=== PATIENT | male | born 2000 | race Two or more races ===

== ENCOUNTER 2025-03-23 23:52 | Emergency (ER) | payer OTHER, SELFPAY ==
[2025-03-23 23:52] VITALS: BMI 28.1
[2025-03-23 23:59] VITALS: BP 135/85; PULSE 86; RESP 20; TEMP 37.4; O2SAT 97
--- NOTE | 2025-03-24 00:20 | PD.EDRME ---
Rapid Medical Screening Exam E Arrival date/time: 03/23/25 23:52 24M with history of alcohol use (yesterday) presents to ED with 1 day of gen ab pain and N/V. Chief Complaint: Abdominal Pain Vital signs: Vital Signs Temperature 99.3 F 03/23/25 23:59 Pulse Rate 86 03/23/25 23:59 Respiratory Rate 20 03/23/25 23:59 Blood Pressure 135/85 H 03/23/25 23:59 Pulse Oximetry (%) 97 03/23/25 23:59 Oxygen Delivery Method Room Air 03/23/25 23:59
[2025-03-24] MEDS: ONDANSETRON ODT 4 MG TABRAP PO (00:23)
[2025-03-24 00:44] LABS: Lactate (Lactic Acid) 3.7 mMol/L (0.4-2.0)
[2025-03-24 00:45] LABS: Basophils # (Auto) 0.0 Thou/mm3 (0.0-0.2); Basophils % (Auto) 1 % (0-2.5); Eosinophils # (Auto) 0.1 Thou/mm3 (0.0-0.5); Eosinophils % (Auto) 1 % (0-10); Hematocrit 45.8 % (41.0-53.0); Hemoglobin 15.8 g/dL (13.5-16.0); Immature Granulocytes Auto 0.03 Thou/mm3 (0.00-0.00); Lymphocytes # (Auto) 1.5 Thou/mm3 (1.0-4.8); Lymphocytes % (Auto) 17 % (10-50); Mean Corpuscular HGB Conc 34.5 g/dl (31.0-37.0); Mean Corpuscular Hemoglobin 30.6 pg (25.0-35.0); Mean Corpuscular Volume 89 fL (80-100); Monocytes # (Auto) 0.7 Thou/mm3 (0.0-0.8); Monocytes % (Auto) 8 % (0-12); Neutrophils # (Auto) 6.5 Thou/mm3 (1.8-7.7); Neutrophils % (Auto) 74 % (37-80); Nucleated Red Blood Cell # 0.00 Thou/mm3 (0.00-0.00); Nucleated Red Blood Cell % 0 /100 WBC (0); Platelet Count 221 Thou/mm3 (140-440); RDW Standard Deviation 40.8 fL (35.1-43.9); Red Blood Count 5.17 Miln/mm3 (4.50-5.90); White Blood Count 8.8 Thou/mm3 (3.8-10.6)
[2025-03-24 01:15] LABS: Alanine Aminotransferase 264 U/L (10-49); Albumin, Serum 5.1 gm/dL (3.5-5.0); Albumin/Globulin Ratio 2.0 (1.2-2.2); Alcohol, Blood Medical 193.7 mg/dL (0-10.0); Alkaline Phosphatase 141 U/L (46-116); Anion Gap 18 (7-16); Aspartate Amino Transferase 306 U/L (0-34); BUN/Creatinine Ratio 7 Ratio (12-20); Bilirubin,Total 1.8 mg/dL (0.3-1.2); Blood Urea Nitrogen 6 mg/dL (9-23); Calcium 9.2 mg/dL (8.3-10.6); Calcium (Corrected) 9.2 mg/dL (8.5-10.1); Carbon Dioxide 26.9 mMol/L (20.0-31.0); Chloride 98 mMol/L (98-107); Creatinine (Component) 0.9 mg/dL (0.6-1.3); Estimated Creatinine Clearance 134.7 mL/min (>60); Globulin 2.6 gm/dL (2.3-3.5); Glucose 126 mg/dL (74-106); Lipase 193 U/L (12-53); Osmolality,Calculated 284 (275-295); Potassium 3.2 mMol/L (3.4-5.1); Procalcitonin 0.08 ng/ml (0.0-0.49); Sodium 143 mMol/L (136-145); Total Protein 7.7 gm/dL (5.7-8.2); eGFR > 60 See Note
[2025-03-24 01:31] VITALS: BP 152/101; PULSE 81; RESP 20; TEMP 37.1; O2SAT 97
[2025-03-24 02:31] LABS: Collection Type, Urine Clean Catch; RBC,Urine 0 /hpf (0-3); WBC,Urine 0 /hpf (0-5)
[2025-03-24 02:43] LABS: Amphetamine/Methamp Scrn,U Negative (Negative); Barbiturate Screen,Urine Negative (Negative); Benzodiazepines Screen,Urine Negative (Negative); Benzoylecgonine Screen, Ur Negative (Negative); Fentanyl Screen,Urine Negative (Negative); Opiate Screen,Urine Negative (Negative); THC Screen,Urine Negative (Negative)
--- NOTE | 2025-03-24 02:46 | EDNOTE_ITS ---
ED Abdominal Pain RME/HPI General Chief Complaint: Abdominal Pain Stated complaint: VOMITING, UPPER ABDOMINAL PAIN Arrival date/time: 03/23/25 23:52 RME / HPI RME / HPI narrative: 03/23/25 23:52 24M with history of alcohol use (yesterday) presents to ED with 1 day of gen ab pain and N/V. Dr. Escamilla?s Main ED Evaluation: 24yo male with a history of alcohol abuse presents to the ED for a chief complaint of diffuse abdominal pain. Patient states he last drank alcohol yesterday (drinks daily), reporting since then, he's had diffuse abdominal pain and N/V. Patient denies any fever, chills, or any other associated symptoms. NKA. Related Data Home Medications ?Medication ?Instructions ?Recorded ?Confirmed budesonide-formoterol HFA 80 2 puff inhalation BID 08/2004/08/20 mcg-4.5 mcg/actuation aerosol inhaler (Symbicort) Previous Rx's ?Medication ?Instructions ?Recorded montelukast 5 mg chewable tablet 5 mg PO HS Asthma ##3 0 05/07/14 (Singulair) chlordiazepoxide HCl 25 mg capsule 25 mg PO Q6H PRN al cohol 03/24/25 withdrawal #30 caps metoclopramide HCl 10 mg tablet 10 mg PO Q6H PRN nause a and 03/24/25 (Reglan) vomiting #30 tabs Allergies Allergy/AdvReac Type Severity Reaction Status Date / Time No Known Allergies Allergy Verified 04/08/20 08:33 Review of Systems Review of Systems Systems Reviewed: All systems reviewed, normal except as documented Past Medical History Past Medical History CARDIAC: Negative Congestive Heart Failure or Hypertension RESPIRATORY: Positive Asthma; Negative Chronic Obstructive Pulmonary Disease (COPD) GENITOURINARY: Negative Renal Disease ENT: Negative Glaucoma ENDOCRINE: Negative Diabetes Mellitus Type 1 or Diabetes Mellitus Type 2 HEMATOLOGIC: Negative Blood Disorders Social History SMOKING STATUS: Former smoker ED Exam Narrative Physical exam: Generally patient is alert but tremulous, heart regular rate and rhythm, lungs clear to auscultation equal bilaterally, abdomen soft bowel sounds present nondistended minimal epigastric abdominal tenderness without rebound, skin is cool pale and dry, neurologic exam shows the patient to be tremulous without focal motor deficit. Ольга Coma Scale is 15. Course Quality Measures none Orders Category Date Time Status Alcohol, Blood Medical Stat Lab 03/24/25 00:24 Completed CBC Stat Lab 03/24/25 00:24 Completed CMP [Comprehensive Metabolic Panel] Stat Lab 03/24/25 00:24 Completed Drug Screen,Urine Stat Lab 03/24/25 02:19 Completed Lactate (Lactic Acid) Stat Lab 03/24/25 00:24 Completed Lactic Acid, 3 HR Stat Lab 03/24/25 03:53 Completed Lipase Stat Lab 03/24/25 00:24 Completed Procalcitonin Stat Lab 03/24/25 00:24 Completed Urinalysis, C/S if Indicated Stat Lab 03/24/25 02:19 Completed Metoclopramide Inj [Reglan Inj] Med 03/24/25 04:29 Discontinued 10 mg IVP X1 ONE Ondansetron Inj [Zofran Inj] Med 03/24/25 02:55 Discontinued 4 mg IVP X1 ONE Ondansetron Odt [Zofran Odt] Med 03/24/25 00:19 Discontinued 4 mg PO X1 ONE PHENobarbital Inj 130 mg Med 03/24/25 02:55 Discontinued Sodium Chloride 0.9% Flush [NS Flush] 12 ml IVP X1 PHENobarbital Inj 130 mg Med 03/24/25 04:05 Discontinued Sodium Chloride 0.9% Flush [NS Flush] 12 ml IVP X1 Potassium Chloride [K-Dur] Med 03/24/25 04:06 Discontinued 60 meq PO X1 ONE Sodium Chloride 0.9% 1000 ml [Ns] 1,000 ml Med 03/24/25 02:55 Discontinued IV 999 mls/hr Vital Signs Vital signs: Vital Signs Temperature 99.3 F 03/23/25 23:59 Pulse Rate 86 03/23/25 23:59 Respiratory Rate 20 03/23/25 23:59 Blood Pressure 135/85 H 03/23/25 23:59 Pulse Oximetry (%) 97 03/23/25 23:59 Oxygen Delivery Method Room Air 03/23/25 23:59 Abdominal Pain MDM MDM Narrative MDM Narrative:: Scribe Attestation: 03/24/25 - Phuong Tate am scribing for and in the presence of Dr. Escamilla. Patient appears to be in alcohol withdrawal. Patient received phenobarbital 130 mg IV x 2 as well as Zofran 4 mg IV and Reglan 10 mg IV. Patient was hydrated with a liter normal saline. Patient's labs are consistent with alcohol-induced hepatitis as well as pancreatitis. Patient is nontoxic condition. He appears to be in alcohol withdrawal. He will be discharged on Librium and Reglan to be taken as prescribed. Avoid alcohol. Clear liquid diet and advance as tolerated. Follow-up with his doctor. Return to ER as needed or if condition worsen. Patient's potassium is also slightly low at 3.2 so the patient was given potassium chloride 60 mill equivalents p.o. Differential diagnosis: Alcohol intoxication, alcohol withdrawal, delirium tremens, pancreatitis, hepatitis Patient data External records reviewed:: [facility] previous records (Per chart review, patient has no relevant previous ED visits.) Clinical information provided by:: patient Social determinants that could affect healthcare access:: alcohol use Patient has the following chronic illnesses:: asthma How is presenting disease/condition affected by chronic disease/condition?: uneffected by Evaluation data The following diagnostics were reviewed and interpreted by me:: lab results Lab and/or radiology exams considered but not ordered:: none Interpretation Summary: See MDM Medications / Prescriptions Medications or Prescriptions considered but not ordered:: none Medication administrations:: Medication Administration History Discontinued Medications Phenobarbital Sodium 130 mg/ (Sodium Chloride 12 ml) 0 mg IVP X1 ONE Stop: 03/24/25 02:56 Last Admin: 03/24/25 03:22 Dose: 130 mg Documented By: LEANNE Phenobarbital Sodium 130 mg/ (Sodium Chloride 12 ml) 0 mg IVP X1 ONE Stop: 03/24/25 04:06 Last Admin: 03/24/25 04:18 Dose: 130 mg Documented By: LEANNE Sodium Chloride (Ns) 1,000 mls @ 999 mls/hr IV .Q1H1M ONE Stop: 03/24/25 03:55 Last Infusion: 03/24/25 04:24 Dose: Infused Documented By: Admin: 03/24/25 03:22 Dose: 999 mls/hr Documented By: LEANNE Metoclopramide HCl (Metoclopramide Inj 5 Mg/Ml Vial 2 Ml) 10 mg IVP X1 ONE; Protocol Stop: 03/24/25 04:30 Last Admin: 03/24/25 04:35 Dose: 10 mg Documented By: LEANNE Ondansetron HCl (Ondansetron Odt 4 Mg Tabrap) 4 mg PO X1 ONE; Protocol Stop: 03/24/25 00:20 Last Admin: 03/24/25 00:23 Dose: 4 mg Documented By: BABATUNDE Ondansetron HCl (Ondansetron Inj 2 Mg/Ml Inj 2 Ml) 4 mg IVP X1 ONE; Protocol Stop: 03/24/25 02:56 Last Admin: 03/24/25 03:22 Dose: 4 mg Documented By: LEANNE Potassium Chloride (Potassium Chloride 20 Meq Tabcr) 60 meq PO X1 ONE Stop: 03/24/25 04:07 Last Admin: 03/24/25 04:18 Dose: 60 meq Documented By: LEANNE see above Consultations Consultation(s) initiated? (list below): No Diagnosis Differential diagnosis abdominal pain: other (See MDM) Most likely diagnosis given after review of the tests above:: see clinical impression below Admission Indicated Admission indicated?: not indicated Admission Request Was there a request for admission?: No Disposition Plan Disposition Plan: Discharge Discharge Attestation Discharge Attestation: The patient and all family members were given an opportunity to ask questions and understood the discharge instructions. Discharge instructions specifically effects, indications for sooner follow up or return to the emergency department, and the expected course of current diagnosis. Patient condition: Stable Discharge Plan Plan Patient Disposition: HOME (Self Care) Prescriptions/Referrals Prescriptions/Med Rec: New metoclopramide HCl [Reglan] 10 mg tablet 10 mg PO Q6H PRN (Reason: nausea and vomiting) Qty: 30 0RF chlordiazepoxide HCl 25 mg capsule 25 mg PO Q6H PRN (Reason: alcohol withdrawal) Qty: 30 0RF No Action budesonide-formoterol [Symbicort] 80-4.5 mcg/actuation HFA aerosol inhaler 2 puff IH BID montelukast [Singulair] 5 MG tablet,chewable 5 mg PO HS Qty: 30 0RF Referrals: Cain Atkins MD [Primary Care Provider, Nephrology] - In 1 week Problem List Clinical Impression: Alcohol withdrawal, Alcoholic hepatitis, Pancreatitis, Hypokalemia Patient/Caregiver Discharge Instructions Education Materials: Alcohol Withdrawal: What to Expect, ED Hepatitis Cause Unknown Test ..., ED Pancreatitis Additional Instructions: You must avoid alcohol. Medications as prescribed for nausea vomiting and alcohol withdrawal. Follow-up with your doctor. Return to ER as needed or if condition worsens. Print Language: Citizen Of [place] Stand Alone Forms: Nila Award Info., Patient Portal Info Letter
[2025-03-24] MEDS: ONDANSETRON INJ 2 MG/ML INJ 2 ML 4 MG IVP (03:22)
[2025-03-24] MEDS: SODIUM CHLORIDE 0.9% 1000 ML 1,000 ML 999 ML IV (03:22)
[2025-03-24] MEDS: PHENobarbital Inj 130 MG, SODIUM CHLORIDE 0.9% FLUSH 12 ML IVP ×2 (03:22→04:18)
[2025-03-24 03:30] LABS: Amorphous Crystals,Urine Present (Absent); Bilirubin,Urine 1+ (Negative); Blood,Urine Negative (Negative); Clarity,Urine Turbid (Clear/Hazy); Color,Urine Drk-Yellow (Lt Yel-Yel); Culture Indicated,Urine Not Indicated; Glucose, Urine Trace (Negative); Hyaline Casts,Urine 2 /hpf (0-1); Ketones,Urine Trace (Negative); Leukocyte Esterase,Urine Negative (Negative); Nitrite,Urine Negative (Negative); PH,Urine 6.0 (5.0-7.0); Protein,Urine 2+ (Neg - Trace); Specific Gravity,Urine 1.036 (1.001-1.035); Squamous Epithelial Cell,Urine 5 /hpf (0-5)
[2025-03-24 03:38] LABS: Urobilinogen,Urine >8.0 mg/dL (0.0-1.0)
[2025-03-24 03:41] LABS: Reflex Lactate? Y
[2025-03-24 04:02] LABS: Lactic Acid, 3 HR 3.6 mMol/L (0.4-2.0)
[2025-03-24 04:29] VITALS: BP 143/84; PULSE 83; RESP 19; TEMP 36.9; O2SAT 97
[2025-03-24] MEDS: METOCLOPRAMIDE INJ 5 MG/ML VIAL 2 ML 10 MG IVP (04:35)
== END 2025-03-24 04:51 | disposition home or self-care (01) ==
PROVIDERS: Physician Assistant; Emergency Provider Emergency Medicine; PCP Internal Medicine
DX: K85.90 Acute pancreatitis without necrosis or infection, unspecified (principal); F10.239 Alcohol dependence with withdrawal, unspecified; Y90.9 Presence of alcohol in blood, level not specified; K70.10 Alcoholic hepatitis without ascites; E87.6 Hypokalemia; Z79.51 Long term (current) use of inhaled steroids
CPT/HCPCS: 36415; 80053; 80307; 80320; 81001; 83605; 83690; 84145; 85025; 96361; 96374; 96375; 96376; 99283; A4216; J2405; J2560; J2765; J7030; Q0162; A9270; G0480

== ENCOUNTER 2025-05-29 00:08 | Emergency (ER) | payer OTHER, SELFPAY ==
[2025-05-29 00:10] VITALS: BMI 26.6
--- NOTE | 2025-05-29 00:48 | PC.NURSE ---
TOLD SECURITY HE FEELS BETTER AND DOES NOT WANT TO BE SEEN. LILIANA
== END 2025-05-29 00:49 | disposition left against medical advice (07) ==
LOC: SERX 01:09
PROVIDERS: Emergency Provider Emergency Medicine
DX: Z53.21 Procedure and treatment not carried out due to patient leaving prior to being seen by health care provider (principal)
CPT/HCPCS: 99281

== ENCOUNTER 2025-05-29 22:14 | Emergency (ER) | payer OTHER, SELFPAY ==
[2025-05-29 22:16] VITALS: BMI 26.6
[2025-05-29 22:39] VITALS: PULSE 102; RESP 20; TEMP 36.9; O2SAT 98
[2025-05-29 22:46] VITALS: BP 92/59; PULSE 134
--- NOTE | 2025-05-29 22:50 | EKG_ITS ---
[facility] Test Date: 2025-05-29 Pat Name: VALENTIN COREAS Department: Room: - Gender: Male Corsetier: : 2000 Requested By: ED Temporary Provider Order Number: [id number] Reading MD: ED Temporary Provider Measurements Intervals [place] Rate: 133 P: -1 AL: 108 QRS: 93 QRSD: 89 T: -27 QT: 269 QTc: 401 Interpretive Statements SINUS TACHYCARDIA WITH SHORT AL INTERVAL BORDERLINE RIGHT AXIS DEVIATION [QRS AXIS > 90] NONSPECIFIC T-WAVE ABNORMALITY No previous ECG available for comparison /store/S0/[id number]/[id number].pdf
--- NOTE | 2025-05-29 22:52 | XR_ITS ---
EXAMINATION: AP chest single view TECHNIQUE: AP portable upright chest single view INDICATIONS: Coughing today. FINDINGS: Mild enlargement cardiac contour Prominent vascular congestion Perihilar basilar lung opacity Prominent osteopenia IMPRESSION: Bilateral perihilar basilar pneumonia Suspicious for mild heart failure, clinical correlation advised
[2025-05-29] MEDS: SODIUM CHLORIDE 0.9% 1000 ML 1,000 ML 999 ML IV (23:03)
[2025-05-29 23:21] LABS: Basophils # (Auto) 0.1 Thou/mm3 (0.0-0.2); Basophils % (Auto) 1 % (0-2.5); Eosinophils # (Auto) 0.0 Thou/mm3 (0.0-0.5); Eosinophils % (Auto) 0 % (0-10); Hematocrit 42.9 % (41.0-53.0); Hemoglobin 15.0 g/dL (13.5-16.0); Immature Granulocytes Auto 0.09 Thou/mm3 (0.00-0.00); Lymphocytes # (Auto) 1.3 Thou/mm3 (1.0-4.8); Lymphocytes % (Auto) 11 % (10-50); Mean Corpuscular HGB Conc 35.0 g/dl (31.0-37.0); Mean Corpuscular Hemoglobin 32.0 pg (25.0-35.0); Mean Corpuscular Volume 92 fL (80-100); Monocytes # (Auto) 1.0 Thou/mm3 (0.0-0.8); Monocytes % (Auto) 8 % (0-12); Neutrophils # (Auto) 9.3 Thou/mm3 (1.8-7.7); Neutrophils % (Auto) 79 % (37-80); Nucleated Red Blood Cell # 0.00 Thou/mm3 (0.00-0.00); Nucleated Red Blood Cell % 0 /100 WBC (0); Platelet Count 406 Thou/mm3 (140-440); RDW Standard Deviation 44.9 fL (35.1-43.9); Red Blood Count 4.69 Miln/mm3 (4.50-5.90); White Blood Count 11.8 Thou/mm3 (3.8-10.6)
[2025-05-29] MEDS: ONDANSETRON INJ 2 MG/ML INJ 2 ML 4 MG IVP (23:42)
[2025-05-29 23:58] LABS: Alanine Aminotransferase 377 U/L (10-49); Albumin, Serum 4.2 gm/dL (3.5-5.0); Albumin/Globulin Ratio 1.3 (1.2-2.2); Alcohol, Blood Medical 339.1 mg/dL (0-10.0); Alkaline Phosphatase 189 U/L (46-116); Anion Gap 13 (7-16); Aspartate Amino Transferase 1363 U/L (0-34); BUN/Creatinine Ratio 13 Ratio (12-20); Bilirubin,Total 1.8 mg/dL (0.3-1.2); Blood Urea Nitrogen 13 mg/dL (9-23); Calcium 8.4 mg/dL (8.3-10.6); Calcium (Corrected) 8.4 mg/dL (8.5-10.1); Carbon Dioxide 25.0 mMol/L (20.0-31.0); Chloride 102 mMol/L (98-107); Creatinine (Component) 1.0 mg/dL (0.6-1.3); Estimated Creatinine Clearance 114.9 mL/min (>60); Globulin 3.2 gm/dL (2.3-3.5); Glucose 137 mg/dL (74-106); Lipase 83 U/L (12-53); Osmolality,Calculated 281 (275-295); Potassium 3.2 mMol/L (3.4-5.1); Sodium 140 mMol/L (136-145); Total Protein 7.4 gm/dL (5.7-8.2); eGFR > 60 See Note
[2025-05-30 00:01] LABS: Troponin I 0.073 ng/mL (0.0-0.045)
--- NOTE | 2025-05-30 00:18 | PC.NURSE ---
pt states he drinks 2 shots of 50 proof daily
[2025-05-30 00:23] VITALS: PULSE 137; RESP 20; O2SAT 99
[2025-05-30] MEDS: ALBUTEROL/IPRATROPIUM (Duoneb) RT SOL 3 ML NEBU INH (00:23)
--- NOTE | 2025-05-30 00:23 | PC.NURSE ---
pt has been educated multiple time to stay in bed, documneting nurse keeps finding the patient out of bed. pt has stated multple times that he has fainted yet no witnesess
[2025-05-30 00:30] LABS: Collection Type, Urine Clean Catch
[2025-05-30 00:41] LABS: Bacteria,Urine Rare; Bilirubin,Urine 2+ (Negative); Blood,Urine 2+ (Negative); Clarity,Urine Turbid (Clear/Hazy); Color,Urine Drk-Yellow (Lt Yel-Yel); Glucose, Urine Trace (Negative); Hyaline Casts,Urine 2 /hpf (0-1); Ketones,Urine Negative (Negative); Leukocyte Esterase,Urine Negative (Negative); Nitrite,Urine Negative (Negative); PH,Urine 6.0 (5.0-7.0); Protein,Urine 3+ (Neg - Trace); RBC,Urine 9 /hpf (0-3); Specific Gravity,Urine 1.035 (1.001-1.035); Squamous Epithelial Cell,Urine 2 /hpf (0-5); Urobilinogen,Urine OVER mg/dL (0.0-1.0); WBC,Urine 17 /hpf (0-5)
--- NOTE | 2025-05-30 01:07 | PC.LAC ---
pt refusing labs want iv fluids and DC papers does not wantt o stay for further treatment
--- NOTE | 2025-05-30 01:08 | EDNOTE_ITS ---
Upper Respiratory Inf. RME/HPI General Chief Complaint: Flu Like Symptoms Stated Complaint: DIFF BREATHING, COUGHING Time Seen by Provider: 05/29/25 22:49 Arrival date/time: 05/29/25 22:14 Mode of arrival: ambulatory Limitations: no limitations RME / HPI RME / HPI Narrative: This patient is a 24-year-old male who arrives to the ED today for evaluation of cough for the past several days as well as shortness of breath that began yesterday and continued into today. Patient states that symptoms came on relatively unrelenting. Patient denies any fever. Patient does state that he utilizes alcohol daily. Patient appears intoxicated at time of arrival. Patient was hypotensive and tachycardic. Related Data Home Medications ?Medication ?Instructions ?Recorded ?Confirmed budesonide-formoterol HFA 80 2 puff inhalation BID 08/2004/08/20 mcg-4.5 mcg/actuation aerosol inhaler (Symbicort) Previous Rx's ?Medication ?Instructions ?Recorded montelukast 5 mg chewable tablet 5 mg PO HS Asthma ##3 0 05/07/14 (Singulair) chlordiazepoxide HCl 25 mg capsule 25 mg PO Q6H PRN al cohol 03/24/25 withdrawal #30 caps metoclopramide HCl 10 mg tablet 10 mg PO Q6H PRN nause a and 03/24/25 (Reglan) vomiting #30 tabs acetaminophen 500 mg tablet 500 mg PO Q4H PRN fever or pain 05/30/25 (Tylenol Extra Strength) #30 tabs amoxicillin 875 mg-potassium 1 tab PO BID 10 days #20 tabs 05/30/25 clavulanate 125 mg tablet chlordiazepoxide HCl 25 mg capsule 25 mg PO TID PRN an xiety #20 caps 05/30/25 levofloxacin 750 mg tablet 750 mg PO Q24H 10 days #10 tabs 05/30/25 ondansetron 4 mg disintegrating 4 mg PO Q6H PRN nausea and 05/30/25 tablet vomiting #20 tabs Allergies Allergy/AdvReac Type Severity Reaction Status Date / Time No Known Allergies Allergy Verified 05/29/25 22:15 Review of Systems Review of Systems Systems Reviewed: All systems reviewed, normal except as documented Past Medical History Past Medical History CARDIAC: Negative Congestive Heart Failure or Hypertension RESPIRATORY: Positive Asthma; Negative Chronic Obstructive Pulmonary Disease (COPD) GENITOURINARY: Negative Renal Disease ENT: Negative Glaucoma ENDOCRINE: Negative Diabetes Mellitus Type 1 or Diabetes Mellitus Type 2 HEMATOLOGIC: Negative Blood Disorders Social History SMOKING STATUS: Current every day smoker ED Exam Narrative Physical exam: This patient looks moderately toxic at time of evaluation. Patient displayed pallor. General Limitations: Present no limitations General appearance: Present in distress (Patient was in moderate distress due to generalized ill feeling and cough concerns.) Head Head exam: Present atraumatic Eye Eye exam: Present PERRL, EOMI and conjunctival injection ENT ENT exam: Present normal exam, normal oropharynx and mucous membranes moist Neck Neck exam: Present normal inspection, full ROM and trachea midline Chest Chest inspection: Present normal inspection and symmetric chest wall rise Respiratory Respiratory exam: Present other (Mild rhonchi appreciated in bilateral lower lobes. No accessory muscle use.) Cardiovascular Cardiovascular exam: Present normal rhythm, tachycardia and normal heart sounds Abdominal Exam Abdominal exam: Present soft and normal bowel sounds Extremities Exam Extremities exam: Present normal inspection and full ROM Back Exam Back exam: Present normal inspection and full ROM Neurological Exam Neurological exam: Present oriented X3 and other (Patient appears intoxicated.) Psychiatric Psychiatric exam: Present normal affect and normal mood Skin Skin exam: Present warm, dry, intact and normal color Course Quality Measures none Orders Category Date Time Status Bedside COVID-19 Antigen Test NOW Care 05/29/25 22:52 Active Bedside Influenza A&B Antigen Test NOW Care 05/29/25 22:52 Completed EKG (ED ONLY) *Do not use* NOW Care 05/29/25 22:50 Completed IV [Insert IV] NOW Care 05/29/25 22:52 Active EKG (ED Only) Stat Exams 05/29/25 22:50 Draft XR chest 1V portable Stat Exams 05/29/25 22:52 Completed Alcohol, Blood Medical Stat Lab 05/29/25 23:05 Completed CBC Stat Lab 05/29/25 23:05 Completed CMP [Comprehensive Metabolic Panel] Stat Lab 05/29/25 23:05 Completed Lipase Stat Lab 05/29/25 23:05 Completed Troponin I Stat Lab 05/29/25 23:05 Completed Troponin I Stat Lab 05/30/25 00:55 Ordered UA [Urinalysis] Stat Lab 05/30/25 00:16 Completed Albuterol/Ipratr Rt Kayla [Duoneb Rt Kayla] Med 05/30/25 00:01 Discontinued 3 ml INH X1 ONE Azithromycin Inj [Zithromax Inj] 500 mg Med 05/30/25 00:56 Discontinued Sodium Chloride 0.9% 250 ml [Ns] 250 ml IV X1 Azithromycin Po [Zithromax PO] Med 05/30/25 01:05 Discontinued 500 mg PO X1 ONE DOXYCYCLINE HYCLATE 100mg IV Med 05/30/25 00:57 Discontinued 100 mg IV X1 ONE Doxycycline [Vibramycin] Med 05/30/25 01:05 Discontinued 100 mg PO X1 ONE Ondansetron Inj [Zofran Inj] Med 05/29/25 23:36 Discontinued 4 mg IVP X1 ONE Sodium Chloride 0.9% 1000 ml [Ns] 1,000 ml Med 05/29/25 22:51 Discontinued IV 999 mls/hr Sodium Chloride 0.9% 1000 ml [Ns] 1,000 ml Med 05/30/25 00:58 Active IV 999 mls/hr dexAMETHasone INJ [Decadron Inj] Med 05/30/25 00:01 Discontinued 10 mg IVP X1 ONE As noted above Vital Signs Vital signs: Vital Signs Temperature 98.4 F 05/29/25 22:39 Pulse Rate 102 H 05/29/25 22:39 Respiratory Rate 20 05/29/25 22:39 Pulse Oximetry (%) 98 05/29/25 22:39 Oxygen Delivery Method Room Air 05/29/25 22:39 As noted above Upper Respiratory Infection MDM Narrative MDM Narrative:: All studies performed in the ED were evaluated by me personally. Serum studies revealed a significant transaminitis with an AST of 1363, blood alcohol level of 0.34, elevated troponin as well as a urinary tract infection. Cardiac markers were unremarkable. EKG revealed a sinus tachycardia with short SC interval. Borderline right axis deviation noted. SC interval of 108 and QT interval of 269. Chest x-ray was remarkable for bilateral perihilar basilar pneumonia. Discussed all of the laboratory, EKG and imaging finds with the patient. Advised patient that I would like to admit him, but the patient states he does not want to be admitted and would like to go home on oral medication. Advised patient to utilize medication as directed, cease alcohol use immediately and follow-up with a support group such as alcohol Anonymous. Advised patient if his symptoms worsen, return to ED for management. Patient data External records reviewed:: [facility] previous records Clinical information provided by:: patient Social determinants that could affect healthcare access:: alcohol use Patient has the following chronic illnesses:: None How is presenting disease/condition affected by chronic disease/condition?: no chronic disease Evaluation data The following diagnostics were reviewed and interpreted by me:: lab results, radiology exam(s) and EKG tracing(s) Lab and/or radiology exams considered but not ordered:: None Interpretation Summary: Transaminitis, UTI, elevated troponin, alcohol abuse, pneumonia Medications / Prescriptions Medications or Prescriptions considered but not ordered:: None Medication administrations:: Medication Administration History Sodium Chloride (Ns) 1,000 mls @ 999 mls/hr IV .Q1H1M ONE Stop: 05/30/25 01:58 Discontinued Medications Albuterol/Ipratropium (Albuterol/Ipratropium (Duoneb) Rt Kayla 3 Ml Nebu) 3 ml INH X1 ONE Stop: 05/30/25 00:02 Last Admin: 05/30/25 00:23 Dose: 3 ml Documented By: ERICA Azithromycin (Azithromycin 250 Mg Tablet) 500 mg PO X1 ONE Stop: 05/30/25 01:06 Dexamethasone Sodium Phosphate (Dexamethasone Sod Phos Inj 10 Mg/Ml Vial) 10 mg IVP X1 ONE Stop: 05/30/25 00:02 Last Admin: 05/30/25 00:20 Dose: 10 mg Documented By: SHYANNE Doxycycline Hyclate (Doxycycline Hyclate 100 Mg Vial) 100 mg IV X1 ONE Stop: 05/30/25 00:58 Doxycycline Hyclate (Doxycycline 100 Mg Tablet) 100 mg PO X1 ONE Stop: 05/30/25 01:06 Sodium Chloride (Ns) 1,000 mls @ 999 mls/hr IV .Q1H1M ONE Stop: 05/29/25 23:51 Last Infusion: 05/30/25 00:01 Dose: 0 mls/hr Documented By: Admin: 05/29/25 23:03 Dose: 999 mls/hr Documented By: SHYANNE Azithromycin 500 mg/ Sodium (Chloride) 250 mls @ 250 mls/hr IV X1 ONE Stop: 05/30/25 01:55 Ondansetron HCl (Ondansetron Inj 2 Mg/Ml Inj 2 Ml) 4 mg IVP X1 ONE; Protocol Stop: 05/29/25 23:37 Last Admin: 05/29/25 23:42 Dose: 4 mg Documented By: SHYANNE As noted above Consultations Consultation(s) initiated? (list below): No Diagnosis Upper Respiratory Differential Diagnosis: upper respiratory infection and other (Pneumonia, sepsis, electrolyte abnormality, acute coronary syndrome, alcohol abuse, urinary tract infection) Most likely diagnosis given after review of the tests above:: No new, UTI, alcohol abuse, transaminitis Admission Indicated Admission indicated?: indicated Explain why admission is indicated or not indicated:: Due to significant blood alcohol concerns, elevated troponin and concerning liver issues Admission Request Was there a request for admission?: No Admission Attestation Admission request attestation: Patient stated he did not want to be admitted and therefore, patient will be discharged on oral medication. Patient been advised to follow-up with a alcohol cessation group such as alcohol Anonymous. Disposition Plan Disposition Plan: Discharge Discharge Attestation Discharge Attestation: The patient and all family members were given an opportunity to ask questions and understood the discharge instructions. Discharge instructions specifically effects, indications for sooner follow up or return to the emergency department, and the expected course of current diagnosis. Patient condition: Stable Discharge Plan Plan Patient Disposition: HOME (Self Care) Prescriptions/Referrals Prescriptions/Med Rec: New amoxicillin-pot clavulanate 875-125 mg tablet 1 tab PO BID 10 Days Qty: 20 0RF levofloxacin 750 mg tablet 750 mg PO Q24H 10 Days Qty: 10 0RF ondansetron 4 mg tablet,disintegrating 4 mg PO Q6H PRN (Reason: nausea and vomiting) Qty: 20 0RF acetaminophen [Tylenol Extra Strength] 500 mg tablet 500 mg PO Q4H PRN (Reason: fever or pain) Qty: 30 0RF chlordiazepoxide HCl 25 mg capsule 25 mg PO TID MDD 3 tabs PRN (Reason: anxiety) Qty: 20 0RF No Action budesonide-formoterol [Symbicort] 80-4.5 mcg/actuation HFA aerosol inhaler 2 puff IH BID montelukast [Singulair] 5 MG tablet,chewable 5 mg PO HS Qty: 30 0RF metoclopramide HCl [Reglan] 10 mg tablet 10 mg PO Q6H PRN (Reason: nausea and vomiting) Qty: 30 0RF chlordiazepoxide HCl 25 mg capsule 25 mg PO Q6H PRN (Reason: alcohol withdrawal) Qty: 30 0RF Referrals: No Primary/Family,Physician [Primary Care Provider] - In 1 week Problem List Clinical Impression: Pneumonia, Urinary tract infection, Transaminitis Patient/Caregiver Discharge Instructions Education Materials: Urinary Tract Infections in Men, ED Pneumonia (Adult) Additional Instructions: Advised patient was antibiotics as directed to completion as well as a supplement medication as needed. Patient should cease alcohol use immediately and follow-up with a support group such as alcohol Anonymous. Print Language: [place] Stand Alone Forms: Nila Award Info., Patient Portal Info Letter
[2025-05-30] MEDS: DOXYCYCLINE 100 MG TABLET PO (01:11)
[2025-05-30] MEDS: AZITHROMYCIN 250 MG TABLET 500 MG PO (01:11)
[2025-05-30] MEDS: SODIUM CHLORIDE 0.9% 1000 ML 1,000 ML 999 ML IV (01:11)
[2025-05-30 01:36] VITALS: BP 121/85; PULSE 98; RESP 20; O2SAT 98
== END 2025-05-30 01:39 | disposition home or self-care (01) ==
PROVIDERS: Emergency Provider Physician Assistant
DX: J18.9 Pneumonia, unspecified organism (principal); N39.0 Urinary tract infection, site not specified; R74.01 Elevation of levels of liver transaminase levels; F17.290 Nicotine dependence, other tobacco product, uncomplicated; Z79.51 Long term (current) use of inhaled steroids
CPT/HCPCS: 36415; 71045; 80053; 80320; 81001; 83690; 84484; 85025; 87502; 87635; 93005; 94640; 96361; 96374; 96375; 99284; A9270; J1100; J2405; J7030; G0480

== ENCOUNTER 2025-05-31 12:46 | Emergency (ER) | payer OTHER, SELFPAY ==
[2025-05-31 13:07] VITALS: BP 100/66; PULSE 124; RESP 20; TEMP 37.6; O2SAT 95; BMI 26.6
--- NOTE | 2025-05-31 13:30 | PD.EDADULT ---
ED General RME/HPI General Chief complaint: Alcohol Stated complaint: N/V, SOB, ETOH WITHDRAWL Time Seen by Provider: 05/31/25 13:25 Arrival date/time: 05/31/25 12:46 CC: Nausea vomiting loss of appetite drinking alcohol daily HPI ongoing for months, was seen here 2 days ago but refused admission, now returns with same complaints last drink was 3 hours ago. Patient denies chest pain shortness of breath. Related Data Home Medications ?Medication ?Instructions ?Recorded ?Confirmed budesonide-formoterol HFA 80 2 puff inhalation BID 02/04/20 04/08/20 mcg-4.5 mcg/actuation aerosol inhaler (Symbicort) Previous Rx's ?Medication ?Instructions ?Recorded montelukast 5 mg chewable tablet 5 mg PO HS Asthma ##30 05/07/14 (Singulair) chlordiazepoxide HCl 25 mg capsule 25 mg PO Q6H PRN alcohol 03/24/25 withdrawal #30 caps metoclopramide HCl 10 mg tablet 10 mg PO Q6H PRN nausea and 03/24/25 (Reglan) vomiting #30 tabs acetaminophen 500 mg tablet 500 mg PO Q4H PRN fever or pain 05/30/25 (Tylenol Extra Strength) #30 tabs amoxicillin 875 mg-potassium 1 tab PO BID 10 days #20 tabs 05/30/25 clavulanate 125 mg tablet chlordiazepoxide HCl 25 mg capsule 25 mg PO TID PRN anxiety #20 caps 05/30/25 levofloxacin 750 mg tablet 750 mg PO Q24H 10 days #10 tabs 05/30/25 ondansetron 4 mg disintegrating 4 mg PO Q6H PRN nausea and 05/30/25 tablet vomiting #20 tabs Allergies Allergy/AdvReac Type Severity Reaction Status Date / Time No Known Allergies Allergy Verified 05/31/25 12:49 Review of Systems Review of Systems Narrative Review of Systems: GEN: No fever, no chills, no weight loss EYES: No discharge, no visual changes, no pain HEENT: No ear pain, no congestion, no sore throat PULM: No shortness of breath, no cough, no congestion CV: No chest pain, no dyspnea on exertion, no palpitations GI: + nausea, + vomiting, no diarrhea, no pain, no constipation : No frequency, no urgency, no dysuria MUSC/SKEL: No joint pain, no back pain SKIN: No rash PSYCH: No hallucinations, no depression HEME/LYMPH: No easy bleeding or bruising tendencies NEURO: No weakness, no headache Course Course Course Narrative: Initial CIWA 8 Patient's laboratory results and imaging discussed with Dr. James, who states you cannot have elevated transaminitis without gallstones. Patient is a calculus he reviewed it saying that this is normal in appearance of gallbladder and there is no need for surgical consult. Reassessment of the patient at 1999, the patient's heart rate is now accelerated he has no fine hand tremens but he continues to be nauseated. DAfter Breathing treatment, at 2154, the patient left AGAINST MEDICAL ADVICE in spite of being advised that he had potential serious illness underlying and not necessarily had symptoms of alcohol withdrawal. Quality Measures none Orders Category Date Time Status Saline [Insert IV] NOW Care 05/31/25 17:11 Active US gall bladder Stat Exams 05/31/25 16:12 Completed XR chest 1V Stat Exams 05/31/25 20:56 Completed Alcohol, Blood Medical Stat Lab 05/31/25 13:57 Completed B-Type Natriuretic Peptide Stat Lab 05/31/25 13:57 Completed CBC Stat Lab 05/31/25 13:57 Completed CBC Stat Lab 05/31/25 19:49 Completed CMP [Comprehensive Metabolic Panel] Stat Lab 05/31/25 19:49 Results Comprehensive Metabolic Panel Stat Lab 05/31/25 13:57 Completed Drug Screen,Urine Stat Lab 05/31/25 14:15 Completed Lipase Stat Lab 05/31/25 13:57 Completed Lipase Stat Lab 05/31/25 19:49 Results Lipid Panel Stat Lab 05/31/25 19:49 Results Magnesium Stat Lab 05/31/25 13:57 Completed Partial Thromboplastin Time Stat Lab 05/31/25 13:57 Completed Prothrombin Time with INR Stat Lab 05/31/25 13:57 Completed Urinalysis, C/S if Indicated Stat Lab 05/31/25 14:15 Completed Albuterol/Ipratr Rt Kayla [Duoneb Rt Kayla] Med 05/31/25 21:12 Discontinued 3 ml INH X1 ONE Diazepam Inj [Valium Inj] Med 05/31/25 17:11 Discontinued 10 mg IVP X1 ONE Ondansetron Inj [Zofran Inj] Med 05/31/25 17:11 Discontinued 4 mg IVP X1 ONE Ondansetron Odt [Zofran Odt] Med 05/31/25 13:30 Discontinued 4 mg PO X1 ONE Prochlorperazine Inj [Compazine Inj] Med 05/31/25 20:02 Discontinued 10 mg IV X1 ONE Ringers Lactated 1000 ml [Lactated Ringers] 1,000 ml Med 05/31/25 17:11 Discontinued IV 999 mls/hr Ringers Lactated 1000 ml [Lactated Ringers] 1,000 ml Med 05/31/25 18:15 Discontinued IV 999 mls/hr Sodium Chloride 0.9% 1000 ml [Ns] 1,000 ml Med 05/31/25 20:02 Active IV 250 mls/hr Sodium Chloride 0.9% 1000 ml [Ns] 1,000 ml Med 05/31/25 20:02 Discontinued IV 999 mls/hr Vital Signs Vital signs: Vital Signs Temperature 99.7 F 05/31/25 13:07 Pulse Rate 124 H 05/31/25 13:07 Respiratory Rate 20 05/31/25 13:07 Blood Pressure 100/66 05/31/25 13:07 Pulse Oximetry (%) 95 05/31/25 13:07 Oxygen Delivery Method Room Air 05/31/25 13:07 Discharge Plan Plan Patient Disposition: Left Against Medical Advice Patient condition on transfer: Stable Prescriptions/Referrals Prescriptions/Med Rec: No Action budesonide-formoterol [Symbicort] 80-4.5 mcg/actuation HFA aerosol inhaler 2 puff IH BID montelukast [Singulair] 5 MG tablet,chewable 5 mg PO HS Qty: 30 0RF metoclopramide HCl [Reglan] 10 mg tablet 10 mg PO Q6H PRN (Reason: nausea and vomiting) Qty: 30 0RF chlordiazepoxide HCl 25 mg capsule 25 mg PO Q6H PRN (Reason: alcohol withdrawal) Qty: 30 0RF amoxicillin-pot clavulanate 875-125 mg tablet 1 tab PO BID 10 Days Qty: 20 0RF levofloxacin 750 mg tablet 750 mg PO Q24H 10 Days Qty: 10 0RF ondansetron 4 mg tablet,disintegrating 4 mg PO Q6H PRN (Reason: nausea and vomiting) Qty: 20 0RF acetaminophen [Tylenol Extra Strength] 500 mg tablet 500 mg PO Q4H PRN (Reason: fever or pain) Qty: 30 0RF chlordiazepoxide HCl 25 mg capsule 25 mg PO TID MDD 3 tabs PRN (Reason: anxiety) Qty: 20 0RF Referrals: Cain Atkins MD [Primary Care Provider, Nephrology] - In 1 week Problem List Clinical Impression: Abdominal pain, Nausea & vomiting, Alcohol withdrawal, Transaminitis, Elevated bilirubin Patient/Caregiver Discharge Instructions Print Language: Maltese [facility] Clinical Information Provided by: patient Medical Records reviewed [facility] Meds/Rx considered, not ordered None Labs/Rad/Tests considered, not ordered None Chronic Illness/Social Conditions which may negatively complicate care or outcome(s)-explain: ETOH/drugs/substance abuse EKG EKG not done Labs Labs: interpreted by me Lab(s) Interpretation(s): CBC shows a leukocytosis of 14.5 hemoglobin of 13.2 hematocrit of 39.9. Platelet count of 374. Coags show PT of 13.5 INR 1.3 PTT of 24.5 CMP shows a BUN of 26 glucose of 133 no other electrolyte imbalances no renal impairment T. bili is 1.9 AST at 664 ALT of 334 alk phos of 190 note: These are basically unchanged from 3 days ago. BNP at 1500 Lipase at 86. Urine shows no source of infection 1+ ketones 1+ protein UDS is positive for opiates and fentanyl Ethyl alcohol is 109.5. Imaging Imaging interpretation: interpreted by me Imaging Interpretation(s): Ultrasound of the gallbladder shows no sludge or stones. Medication Administration(s) Medication Administration History Sodium Chloride (Ns) 1,000 mls @ 250 mls/hr IV .Q4H [place] Stop: 06/30/25 20:01 Last Admin: 05/31/25 20:31 Dose: 250 mls/hr Documented By: AC Discontinued Medications Albuterol/Ipratropium (Albuterol/Ipratropium (Duoneb) Rt Kayla 3 Ml Nebu) 3 ml INH X1 ONE Stop: 05/31/25 21:13 Last Admin: 05/31/25 21:24 Dose: 3 ml Documented By: DEVORAH Diazepam (Diazepam Inj 5 Mg/Ml Vial 2 Ml) 10 mg IVP X1 ONE Stop: 05/31/25 17:12 Last Admin: 05/31/25 17:49 Dose: 10 mg Documented By: AC Lactated Ringer's (Lactated Ringers) 1,000 mls @ 999 mls/hr IV .Q1H1M ONE Stop: 05/31/25 18:11 Last Infusion: 05/31/25 18:51 Dose: Infused Documented By: Admin: 05/31/25 17:50 Dose: 999 mls/hr Documented By: JEIMY Lactated Ringer's (Lactated Ringers) 1,000 mls @ 999 mls/hr IV .Q1H1M ONE Stop: 05/31/25 19:15 Last Infusion: 05/31/25 18:53 Dose: Infused Documented By: Admin: 05/31/25 17:52 Dose: 999 mls/hr Documented By: JEIMY Sodium Chloride (Ns) 1,000 mls @ 999 mls/hr IV .Q1H1M ONE Stop: 05/31/25 21:02 Last Admin: 05/31/25 20:30 Dose: 999 mls/hr Documented By: JEIMY Ondansetron HCl (Ondansetron Odt 4 Mg Tabrap) 4 mg PO X1 ONE; Protocol Stop: 05/31/25 13:31 Last Admin: 05/31/25 13:57 Dose: 4 mg Documented By: OCTAVIO Ondansetron HCl (Ondansetron Inj 2 Mg/Ml Inj 2 Ml) 4 mg IVP X1 ONE; Protocol Stop: 05/31/25 17:12 Last Admin: 05/31/25 17:49 Dose: 4 mg Documented By: JEIMY Prochlorperazine Edisylate (Prochlorperazine Inj 5 Mg/Ml Vial 2 Ml) 10 mg IV X1 ONE; Protocol Stop: 05/31/25 20:03 Last Admin: 05/31/25 20:29 Dose: 10 mg Documented By: JEIMY
[2025-05-31] MEDS: ONDANSETRON ODT 4 MG TABRAP PO (13:57)
[2025-05-31 14:09] LABS: Basophils # (Auto) 0.1 Thou/mm3 (0.0-0.2); Basophils % (Auto) 0 % (0-2.5); Eosinophils # (Auto) 0.0 Thou/mm3 (0.0-0.5); Eosinophils % (Auto) 0 % (0-10); Hematocrit 39.9 % (41.0-53.0); Hemoglobin 13.2 g/dL (13.5-16.0); Immature Granulocytes Auto 0.25 Thou/mm3 (0.00-0.00); Lymphocytes # (Auto) 0.8 Thou/mm3 (1.0-4.8); Lymphocytes % (Auto) 5 % (10-50); Mean Corpuscular HGB Conc 33.1 g/dl (31.0-37.0); Mean Corpuscular Hemoglobin 30.4 pg (25.0-35.0); Mean Corpuscular Volume 92 fL (80-100); Monocytes # (Auto) 1.2 Thou/mm3 (0.0-0.8); Monocytes % (Auto) 8 % (0-12); Neutrophils # (Auto) 12.3 Thou/mm3 (1.8-7.7); Neutrophils % (Auto) 85 % (37-80); Nucleated Red Blood Cell # 0.04 Thou/mm3 (0.00-0.00); Nucleated Red Blood Cell % 0 /100 WBC (0); Platelet Count 374 Thou/mm3 (140-440); RDW Standard Deviation 43.8 fL (35.1-43.9); Red Blood Count 4.34 Miln/mm3 (4.50-5.90); White Blood Count 14.5 Thou/mm3 (3.8-10.6)
[2025-05-31 14:21] LABS: INR 1.3 (0.9-1.3); Partial Thromboplastin Time 24.5 Seconds (22.0-36.0); Prothrombin Time 13.5 Seconds (9.0-12.2)
[2025-05-31 14:34] LABS: Collection Type, Urine Clean Catch
[2025-05-31 14:36] LABS: Alanine Aminotransferase 334 U/L (10-49); Albumin, Serum 4.1 gm/dL (3.5-5.0); Albumin/Globulin Ratio 1.5 (1.2-2.2); Alcohol, Blood Medical 109.5 mg/dL (0-10.0); Alkaline Phosphatase 190 U/L (46-116); Anion Gap 16 (7-16); Aspartate Amino Transferase 664 U/L (0-34); B-Type Natriuretic Peptide 1502 pg/mL (0-100); BUN/Creatinine Ratio 24 Ratio (12-20); Bilirubin,Total 1.9 mg/dL (0.3-1.2); Blood Urea Nitrogen 26 mg/dL (9-23); Calcium 8.4 mg/dL (8.3-10.6); Calcium (Corrected) 8.4 mg/dL (8.5-10.1); Carbon Dioxide 21.7 mMol/L (20.0-31.0); Chloride 101 mMol/L (98-107); Creatinine (Component) 1.1 mg/dL (0.6-1.3); Estimated Creatinine Clearance 104.4 mL/min (>60); Globulin 2.8 gm/dL (2.3-3.5); Glucose 133 mg/dL (74-106); Lipase 86 U/L (12-53); Magnesium 1.8 mg/dL (1.6-2.6); Osmolality,Calculated 284 (275-295); Potassium 3.9 mMol/L (3.4-5.1); Sodium 139 mMol/L (136-145); Total Protein 6.9 gm/dL (5.7-8.2); eGFR > 60 See Note
[2025-05-31 14:53] LABS: Bilirubin,Urine Negative (Negative); Blood,Urine Negative (Negative); Clarity,Urine Clear (Clear/Hazy); Color,Urine Yellow (Lt Yel-Yel); Culture Indicated,Urine Not Indicated; Glucose, Urine Negative (Negative); Ketones,Urine 1+ (Negative); Leukocyte Esterase,Urine Negative (Negative); Nitrite,Urine Negative (Negative); PH,Urine 6.5 (5.0-7.0); Protein,Urine 1+ (Neg - Trace); RBC,Urine 2 /hpf (0-3); Specific Gravity,Urine 1.032 (1.001-1.035); Squamous Epithelial Cell,Urine 1 /hpf (0-5); Urobilinogen,Urine 4.0 mg/dL (0.0-1.0); WBC,Urine 2 /hpf (0-5)
[2025-05-31 15:03] LABS: Amphetamine/Methamp Scrn,U Negative (Negative); Barbiturate Screen,Urine Negative (Negative); Benzodiazepines Screen,Urine Negative (Negative); Benzoylecgonine Screen, Ur Negative (Negative); Fentanyl Screen,Urine Positive (Negative); Opiate Screen,Urine Positive (Negative); THC Screen,Urine Negative (Negative)
--- NOTE | 2025-05-31 16:12 | XR_ITS ---
Examination: Abdomen sonogram, Limited Date and time of exam: May 31, 2025, 1552 hours INDICATIONS: Alcohol withdrawal 3 days with abdominal pain Technique: Real-time figueredo scale transabdominal sonographic images of the upper abdomen obtained. Findings: Negative for gallstones Gallbladder wall 0.42 cm no edema Common bile duct 0.3 cm Pancreatic head 2.6 cm Liver 16.0 cm lobular contour fatty infiltration Normal hepatopetal portal venous flow Patent IVC Mild right pleural fluid IMPRESSION: Negative for cholelithiasis Thickening of the gallbladder wall 0.42 cm, consider HIDA scan or MRCP follow-up to exclude cholecystitis as clinically warranted Primary hepatocellular disease versus cirrhosis, no focal liver lesions
[2025-05-31] MEDS: DIAZEPAM INJ 5 MG/ML VIAL 2 ML 10 MG IVP (17:49)
[2025-05-31] MEDS: ONDANSETRON INJ 2 MG/ML INJ 2 ML 4 MG IVP (17:49)
[2025-05-31] MEDS: RINGERS LACTATED 1000 ML 1,000 ML 999 ML IV ×2 (17:50→17:52)
[2025-05-31 18:51] VITALS: BP 116/70; PULSE 127; RESP 18; TEMP 37.5; O2SAT 95
[2025-05-31 20:04] VITALS: BP 134/75; PULSE 130; RESP 18; TEMP 36.7; O2SAT 95
[2025-05-31 20:17] LABS: Basophils # (Auto) 0.0 Thou/mm3 (0.0-0.2); Basophils % (Auto) 0 % (0-2.5); Eosinophils # (Auto) 0.0 Thou/mm3 (0.0-0.5); Eosinophils % (Auto) 0 % (0-10); Hematocrit 38.0 % (41.0-53.0); Hemoglobin 13.0 g/dL (13.5-16.0); Immature Granulocytes Auto 0.40 Thou/mm3 (0.00-0.00); Lymphocytes # (Auto) 0.9 Thou/mm3 (1.0-4.8); Lymphocytes % (Auto) 6 % (10-50); Mean Corpuscular HGB Conc 34.2 g/dl (31.0-37.0); Mean Corpuscular Hemoglobin 31.9 pg (25.0-35.0); Mean Corpuscular Volume 93 fL (80-100); Monocytes # (Auto) 1.3 Thou/mm3 (0.0-0.8); Monocytes % (Auto) 9 % (0-12); Neutrophils # (Auto) 12.6 Thou/mm3 (1.8-7.7); Neutrophils % (Auto) 82 % (37-80); Nucleated Red Blood Cell # 0.04 Thou/mm3 (0.00-0.00); Nucleated Red Blood Cell % 0 /100 WBC (0); Platelet Count 384 Thou/mm3 (140-440); RDW Standard Deviation 44.4 fL (35.1-43.9); Red Blood Count 4.08 Miln/mm3 (4.50-5.90); White Blood Count 15.3 Thou/mm3 (3.8-10.6)
[2025-05-31] MEDS: PROCHLORPERAZINE INJ 5 MG/ML VIAL 2 ML 10 MG IV (20:29)
[2025-05-31] MEDS: SODIUM CHLORIDE 0.9% 1000 ML 1,000 ML 999 ML IV (20:30)
[2025-05-31] MEDS: SODIUM CHLORIDE 0.9% 1000 ML 1,000 ML 250 ML IV (20:31)
[2025-05-31 20:37] LABS: Alanine Aminotransferase 305 U/L (10-49); Albumin, Serum 3.8 gm/dL (3.5-5.0); Albumin/Globulin Ratio 1.4 (1.2-2.2); Alkaline Phosphatase 187 U/L (46-116); Anion Gap 14 (7-16); Aspartate Amino Transferase 510 U/L (0-34); BUN/Creatinine Ratio 26 Ratio (12-20); Bilirubin,Total 2.1 mg/dL (0.3-1.2); Blood Urea Nitrogen 26 mg/dL (9-23); Calcium 8.9 mg/dL (8.3-10.6); Calcium (Corrected) 9.1 mg/dL (8.5-10.1); Carbon Dioxide 24.6 mMol/L (20.0-31.0); Chloride 100 mMol/L (98-107); Creatinine (Component) 1.0 mg/dL (0.6-1.3); Estimated Creatinine Clearance 114.9 mL/min (>60); Globulin 2.7 gm/dL (2.3-3.5); Glucose 104 mg/dL (74-106); Lipase 93 U/L (12-53); Osmolality,Calculated 282 (275-295); Potassium 4.3 mMol/L (3.4-5.1); Sodium 139 mMol/L (136-145); Total Protein 6.5 gm/dL (5.7-8.2); eGFR > 60 See Note
--- NOTE | 2025-05-31 20:56 | XR_ITS ---
EXAMINATION: AP chest single view TECHNIQUE: AP portable upright chest single view Date and time: May 31, 2025, 2058 hours, comparison May 29, 2025 INDICATION: Shortness of breath today. FINDINGS: Moderate CHF Mild to moderate enlargement cardiac contour. Prominent vascular congestion with perihilar edema Consider superimposed bilateral pneumonia IMPRESSION: Moderate CHF Consider superimposed bilateral pneumonia
[2025-05-31] MEDS: ALBUTEROL/IPRATROPIUM (Duoneb) RT SOL 3 ML NEBU INH (21:24)
[2025-05-31 21:27] VITALS: PULSE 130; RESP 22; O2SAT 100
[2025-05-31 22:13] LABS: Cardiac Risk Estimate 4.6 RATIO (4.0-6.7); Cholesterol 143 mg/dL (132-200); HDL Cholesterol 31 mg/dL (40-60); LDL Cholesterol,Calculated 88 mg/dL (0-130); Triglycerides 122 mg/dL (30-150)
--- NOTE | 2025-05-31 22:16 | PC.NURSE ---
Pt wanted to leave AMA, pt education was reviewed with patient and his father. Pt signed AMA documents GCS 15, alert and oriented x4, VSS
== END 2025-05-31 22:18 | disposition left against medical advice (07) ==
PROVIDERS: Registered Nurse General Practice; Emergency Provider Family Medicine; PCP Internal Medicine
DX: F10.239 Alcohol dependence with withdrawal, unspecified (principal); R74.01 Elevation of levels of liver transaminase levels; R11.2 Nausea with vomiting, unspecified; R06.02 Shortness of breath; R10.9 Unspecified abdominal pain; Y90.5 Blood alcohol level of 100-119 mg/100 ml; Z53.29 Procedure and treatment not carried out because of patient's decision for other reasons
CPT/HCPCS: 36415; 71045; 76705; 80053; 80061; 80307; 80320; 81001; 83690; 83735; 83880; 85025; 85610; 85730; 94640; 96361; 96374; 96375; 99284; A9270; J0780; J2405; J3360; J7030; J7120; Q0162; G0480